=== PATIENT | female | born 1940 | race Caucasian/White ===

== ENCOUNTER 2016-07-18 12:48 | Inpatient (IN) ==
[2016-07-18] MEDS ORDERED: NITROGLYCERIN SL PRN (12:52)
[2016-07-18] MEDS ORDERED: ZOFRAN IV ONE (12:54)
--- NOTE | 2016-07-18 12:56 | EKG Report ---
Test Performed on : 07/18/2016 12:48:39 PM Test Reason : Chest Pain Blood Pressure : / mmHG Vent. Rate : 065 BPM Atrial Rate : 065 BPM P-R Int : 184 ms QRS Dur : 086 ms QT Int : 466 ms P-R-T Axes : 022 099 -26 degrees QTc Int : 484 ms Normal sinus rhythm. Rightward axis Possible Inferior infarct , age undetermined Abnormal ECG No previous ECGs available Unconfirmed Result
[2016-07-18 13:11] LABS: MANUAL DIFF NEEDED? NO
--- NOTE | 2016-07-18 13:13 | PROVIDER DOCUMENTATION ---
HPI-Chest Pain - General Chief Complaint: Chest Pain Stated Complaint: CP Time Seen by Provider: 07/18/16 13:00 Source: patient, family Allergies/Adverse Reactions: Patient Allergies Allergy/AdvReac Type Severity Reaction Status Date / Time No Known Allergies Allergy Verified 07/18/16 13:14 Home Medications: Home Medication List Medication Instructions Recorded Confirmed Last Taken Type Amlodipine Besylate [Amlodipine 5 mg PO DAILY 07/18/16 07/18/16 Unknown History Besylate] Biotin 1,000 mcg PO DAILY 07/18/16 07/18/16 Unknown History Celecoxib 200 mg PO DAILY 07/18/16 07/18/16 Unknown History Fluoxetine [Prozac] 10 mg PO DAILY 07/18/16 07/18/16 Unknown History Losartan [Cozaar] 50 mg PO DAILY 07/18/16 07/18/16 Unknown History Lovastatin [Lovastatin] 10 mg PO DAILY 07/18/16 07/18/16 Unknown History - History of Present Illness-CP Nature of Presenting Problem: 76 yo who had epidural block for back pain this am. Developed chest pressure and nausea following procedure and came by ambulance for further evaluation. no prior hx of heart problems except HTN. Location: reports: substernal, central Chest Pain Radiation: reports: back Quality of Pain: reports: pressure Severity in ED: severe Onset/Duration: 1/2 hour ago Timing: still present Context/Activities at Onset: reports: other (after epidural) Associated Symptoms: reports: nausea Nitro Today/Relief: 0.4 mg x 1 (in EMS with no relief) Aspirin Treatment Today: 325 mg x 1 (by ems) Similar Symptoms Previously?: No Recently Seen Here or By Another Healthcare Provider: Yes Review of Systems - Adult - REVIEW OF SYSTEMS - ADULT Constitutional: reports: no symptoms reported Eyes: reports: no symptoms reported Ears, Nose, Mouth & Throat: reports: no symptoms reported Cardiovascular: reports: see HPI, chest pain Respiratory: reports: no symptoms reported Gastrointestinal: reports: nausea Integumentary: reports: no symptoms reported Neurological: reports: no symptoms reported Psychiatric: reports: no symptoms reported Endocrine: reports: no symptoms reported Past History - Adult - PAST MEDICAL HISTORY-ADULT Review of Records: reports: Nursing Assessment Review, Medications Reviewed Major Childhood Illnesses: reports: history unknown Cardiovascular: reports: HTN Respiratory: reports: denies history Gastrointestinal: reports: denies history Genitourinary: reports: denies history Musculoskeletal: reports: arthritis, chronic pain, neck/back injury Neurological: reports: denies history Psychiatric: reports: denies history Endocrine/Immune: reports: thyroid disorder Physical Exam-General - PHYSICAL EXAM-ADULT Initial Vital Signs Reviewed: Yes - CONSTITUTIONAL General Appearance: alert, no apparent distress - EYES Eyes: PERRL/EOMI - HEAD, EARS, NOSE, MOUTH & THROAT HENMT: normal ENT inspection - NECK Neck: non-tender, supple, normal inspection - RESPIRATORY Respiratory: chest non-tender, lungs clear, normal breath sounds - CARDIOVASCULAR Cardiovascular: regular rate, rhythm, no edema, no gallop, no JVD, no murmur - GASTROINTESTINAL (ABDOMEN) Abdominal Exam: normal bowel sounds, non tender, soft, no organomegaly - LYMPHATIC Lymphatic: no adenopathy - MUSCULOSKELETAL Back Exam: normal inspection Extremity: normal range of motion, non-tender - SKIN Integumentary: normal color, normal turgor, warm/dry - NEUROLOGIC Neurologic: grossly normal, no motor/sensory deficits Progress - PLAN OF CARE/RESULTS Progress/Plan/Lab Results: Vital Signs - 8 hr 07/18/16 12:49 07/18/16 15:33 07/18/16 16:52 Pulse Rate 62 73 Respiratory Rate 13 20 Blood Pressure 138/68 153/72 153/72 O2 Sat by Pulse Oximetry 97 95 07/18/16 17:32 07/18/16 18:40 07/18/16 19:26 Pulse Rate 74 72 65 Respiratory Rate 16 14 16 Blood Pressure 153/72 153/72 153/72 O2 Sat by Pulse Oximetry 96 97 Laboratory Results - last 24 hr 07/18/16 07/18/16 07/18/16 13:00 13:00 13:00 WBC 6.03 RBC 3.62 L Hgb 10.4 L Hct 32.7 L MCV 90.3 MCH 28.7 MCHC 31.8 L RDW Std Deviation 13.0 Plt Count 187 MPV 10.9 H Immature Gran % (Auto) Neut % (Auto) 84.6 H Lymph % (Auto) 12.9 L [place] % (Auto) 1.8 Eos % (Auto) 0.2 Baso % (Auto) 0.5 Immature Gran # (Auto) Neut # (Auto) 5.10 Lymph # (Auto) 0.78 L [place] # (Auto) 0.11 Eos # (Auto) 0.01 Baso # (Auto) 0.03 PT INR PTT (Actin FS) D-Dimer 0.68 H Sodium 139 Potassium 3.0 L Chloride 110 H Carbon Dioxide 17 L Anion Gap 12 BUN 24 H Creatinine 0.9 Estimated GFR/1.73 m2 > 60 BUN/Creatinine Ratio 27 Glucose 117 H Calculated Osmolality 283 Calcium 6.6 L* Magnesium 1.5 Total Bilirubin 0.29 AST 11 ALT 7 L Alkaline Phosphatase 45 Creatine Kinase 24 Troponin T Xcn-M-Tefmlbvketg Pept Total Protein 5.5 L Albumin 2.8 L Globulin 2.7 Albumin/Globulin Ratio 1.0 07/18/16 07/18/16 07/18/16 13:00 13:00 13:00 WBC RBC Hgb Hct MCV MCH MCHC RDW Std Deviation Plt Count MPV Immature Gran % (Auto) Neut % (Auto) Lymph % (Auto) [place] % (Auto) Eos % (Auto) Baso % (Auto) Immature Gran # (Auto) Neut # (Auto) Lymph # (Auto) [place] # (Auto) Eos # (Auto) Baso # (Auto) PT 11.5 INR 1.09 PTT (Actin FS) 23.9 D-Dimer Sodium Potassium Chloride Carbon Dioxide Anion Gap BUN Creatinine Estimated GFR/1.73 m2 BUN/Creatinine Ratio Glucose Calculated Osmolality Calcium Magnesium Total Bilirubin AST ALT Alkaline Phosphatase Creatine Kinase Troponin T < 0.010 Ueu-J-Gxhmzpenyvq Pept 192 Total Protein Albumin Globulin Albumin/Globulin Ratio 07/18/16 07/18/16 07/18/16 15:25 15:25 18:05 WBC RBC Hgb Hct MCV MCH MCHC RDW Std Deviation Plt Count MPV Immature Gran % (Auto) Neut % (Auto) Lymph % (Auto) [place] % (Auto) Eos % (Auto) Baso % (Auto) Immature Gran # (Auto) Neut # (Auto) Lymph # (Auto) [place] # (Auto) Eos # (Auto) Baso # (Auto) PT INR PTT (Actin FS) D-Dimer Sodium 139 Potassium 4.3 D Chloride 104 Carbon Dioxide 19 L Anion Gap 16 BUN 27 H Creatinine 1.2 H Estimated GFR/1.73 m2 44 BUN/Creatinine Ratio 23 Glucose 142 H Calculated Osmolality 285 Calcium 9.2 D Magnesium Total Bilirubin 0.27 AST 18 ALT 11 Alkaline Phosphatase 64 Creatine Kinase 43 Troponin T 0.016 D Ppg-V-Mxpgrffznrp Pept Total Protein 7.4 Albumin 4.0 Globulin 3.4 Albumin/Globulin Ratio 1.2 07/18/16 07/18/16 18:05 18:05 WBC 5.42 RBC 4.44 Hgb 12.9 D Hct 38.9 MCV 87.6 MCH 29.1 MCHC 33.2 RDW Std Deviation 13.1 Plt Count 225 MPV 10.9 H Immature Gran % (Auto) 0.4 Neut % (Auto) 92.2 H Lymph % (Auto) 6.8 L [place] % (Auto) 0.4 L Eos % (Auto) 0.0 Baso % (Auto) 0.2 Immature Gran # (Auto) 0.02 Neut # (Auto) 5.00 Lymph # (Auto) 0.37 L [place] # (Auto) 0.02 L Eos # (Auto) 0.00 Baso # (Auto) 0.01 PT INR PTT (Actin FS) D-Dimer Sodium Potassium Chloride Carbon Dioxide Anion Gap BUN Creatinine Estimated GFR/1.73 m2 BUN/Creatinine Ratio Glucose Calculated Osmolality Calcium Magnesium Total Bilirubin AST ALT Alkaline Phosphatase Creatine Kinase Troponin T 0.039 D Nir-K-Axtkhurxgmm Pept Total Protein Albumin Globulin Albumin/Globulin Ratio Orders Category Date Time Status Cardiac Monitoring DIRECTED Care 07/18/16 12:52 Active Oxygen Therapy- ED Nursing DIRECTED Care 07/18/16 12:52 Active Saline Loc NOW Care 07/18/16 12:52 Active CHEST-PORTABLE [RAD] Stat Exams 07/18/16 12:53 Completed CTA [ANGIOGRAM/PULMONARY ARTERIES] [CT] Stat Exams 07/18/16 14:36 Completed CBC WITH DIFF [HEME] Stat Lab 07/18/16 18:05 Completed CBC WITH ELECTRONIC DIFF [HEME] Stat Lab 07/18/16 13:00 Completed CK PROFILE [SP CHEM] Stat Lab 07/18/16 13:00 Completed CK PROFILE [SP CHEM] Stat Lab 07/18/16 15:25 Completed COMPREHENSIVE METABOLIC PANEL [CHEM] Stat Lab 07/18/16 13:00 Completed COMPREHENSIVE METABOLIC PANEL [CHEM] Stat Lab 07/18/16 18:05 Completed D-DIMER [CHEM] Stat Lab 07/18/16 13:00 Completed FERRITIN Routine Lab 07/19/16 06:00 Ordered FOLATE Routine Lab 07/19/16 06:00 Ordered MAGNESIUM [CHEM] Stat Lab 07/18/16 13:00 Completed PRO B-NATRIURETIC PEPTIDE Stat Lab 07/18/16 13:00 Completed PROTIME WITH INR [COAG] Stat Lab 07/18/16 13:00 Completed PTT [COAG] Stat Lab 07/18/16 13:00 Completed TOTAL IRON [CHEM] Routine Lab 07/19/16 06:00 Ordered TROPONIN T Stat Lab 07/18/16 13:00 Completed TROPONIN T Stat Lab 07/18/16 15:25 Completed TROPONIN T Stat Lab 07/18/16 18:05 Completed UIBC W TOTAL IRON [CHEM] Routine Lab 07/19/16 06:00 Ordered VITAMIN B12 Routine Lab 07/19/16 06:00 Ordered Famotidine [Pepcid] Med 07/18/16 16:04 Discontinued 20 mg IV NOW ONE Lido/Springer Alk/Al&mg Hydrox [G.i. Cocktail] Med 07/18/16 16:05 Discontinued 30 ml PO NOW ONE Morphine Med 07/18/16 14:29 Discontinued 2 mg IV NOW ONE Morphine Med 07/18/16 16:05 Discontinued 2 mg IV NOW ONE Nitroglycerin Med 07/18/16 13:20 Discontinued 1 inch TOP NOW ONE Nitroglycerin Sl [Nitroglycerin] Med 07/18/16 12:52 Active 0.4 mg SL Q5M PRN PRN Ondansetron [Zofran] Med 07/18/16 12:54 Discontinued 4 mg IV NOW ONE Potassium Chloride 20 Meq/Swi Med 07/18/16 14:33 Discontinued 20 meq in 100 ml IV ONCE Sodium Chloride 0.9% Med 07/18/16 16:04 Discontinued 5 - 10 ml INJ NOW ONE EKG [EKG] Stat Ther 07/18/16 12:52 Draft EKG [EKG] Stat Ther 07/18/16 15:00 Ordered Transfer/Admit Order [TRANSFER] Routine Transfer 07/18/16 18:13 Ordered Result Diagrams: 07/18/16 18:05 07/18/16 18:05 - EKG 1 Time of EKG reading by physician:: 13:00 EKG Read and Signed by:: Zeny Parish EKG Interpretation (*Must complete 3 of following elements*): Abnormal [place]: right IN Interval: normal ST Wave: non-specific ST changes (wave inverted inferiorly- unsure duration) Prior EKG Comparison: no prior EKG - XRAY 1 XRAY Study: Chest (no acute changes, mild cardiomegally) - CT/MRI 1 CT Study: Angiogram (chest- no pulmonary embolus, moderate hiatal hernia) - CONSULTS/PCP/HOSPITALIST Notification #1 *Consult/PCP/Hospitalist*: Dr Aguilar ( hospitalist covering [place]) Time Discussed: 16:30 Reason/Comments: r/o RI Consult Disposition: Admit Departure - Departure Time of Disposition Decision: 16:30 DIAGNOSIS: Chest pain Disposition: ADMITTED INPATIENT 09 Certified Medical Emergency: Emergent Condition: Fair Referrals and Follow-Ups: Raleigh Banda MD [Primary Care Provider] -
[2016-07-18 13:14] LABS: BASO% 0.5 % (0.0-0.8); EOS# 0.01 X1000 (0.0-0.7); EOS% 0.2 % (0.0-10.0); HEMATOCRIT 32.7 % (37.0-47.0); HEMOGLOBIN 10.4 g/dL (12.0-16.0); LYMPH# 0.78 X1000 (1.2-3.4); LYMPH% 12.9 % (20.5-51.1); MCH 28.7 PG (27-31); MCHC 31.8 g/dL (33-37); MCV 90.3 FL (81-99); MONO# 0.11 X1000 (0.11-0.59); MONO% 1.8 % (1.7-9.3); MPV 10.9 FL (7.4-10.4); NEUT% 84.6 % (42.2-75.2); PLT 187 X1000 (130-400); RBC 3.62 XMIL (4.2-5.4)
[2016-07-18] MEDS ORDERED: NITROGLYCERIN TOP ONE (13:20)
[2016-07-18 13:29] LABS: INR 1.09; PROTIME 11.5 Seconds (9.2-11.7); PTT 23.9 Seconds (22.0-36.0)
[2016-07-18 14:09] LABS: AGAP 12; ALBUMIN 2.8 g/dL (3.5-5.0); ALKALINE PHOSPHATASE 45 U/L (32-104); BUN 24 mg/dL (8-22); CALCIUM 6.6 mg/dL (8.8-10.2); CHLORIDE 110 mmol/L (98-107); CK PROFILE 24 U/L (24-173); COSMO 283; GOT 11 U/L (10-30); GPT 7 U/L (10-36); MAGNESIUM 1.5 mg/dL (1.5-2.7); SODIUM 139 mmol/L (136-145); TCO2 17 mmol/L (25-35); TOTAL BILIRUBIN 0.29 mg/dL (0.20-1.00); TOTAL PROTEIN 5.5 g/dL (6.3-8.3)
--- NOTE | 2016-07-18 14:21 | Diag Imaging Result Document ---
PROCEDURE NAME: CHEST-PORTABLE - 07/18/2016 PORTABLE UPRIGHT CHEST: FINDINGS: The lungs are well expanded. Heart is mildly prominent. The vessels are not distended. No pneumonia. No pleural effusions identified. There is a small hiatal hernia. No pneumonia. IMPRESSION: Mild cardiomegaly.
[2016-07-18] MEDS ORDERED: MORPHINE IV ONE ×2 (14:29→16:05)
[2016-07-18] MEDS ORDERED: POTASSIUM CHLORIDE 20 MEQ/SWI 20 MEQ/100 ML IVPB IV ONE (14:33)
[2016-07-18] MEDS ORDERED: PEPCID IV ONE (16:04)
[2016-07-18] MEDS ORDERED: SODIUM CHLORIDE 0.9% INJ ONE (16:04)
[2016-07-18] MEDS ORDERED: G.I. COCKTAIL PO ONE (16:05)
--- NOTE | 2016-07-18 16:11 | Diag Imaging Result Document ---
PROCEDURE NAME: ANGIOGRAM/PULMONARY ARTERIES - 07/18/2016 CT ANGIOGRAM PULMONARY ARTERIES WITH CONTRAST: FINDINGS: Exam performed with intravenous contrast. A dose reduction protocol was used. Axial and coronal images are obtained. No comparison exam. There are mild artifacts from motion, primarily at the lower lobes. There are no filling defects identified in the pulmonary arteries. There are 2 calcified granulomas from old granulomatous disease at the right middle lobe. There are 2 noncalcified nodular opacities at the right apex, 1 of which measures 5-6 mm and the other which measures 4-5 mm. There is mild dependent atelectasis. There is no consolidation, pleural effusion, or pneumothorax identified. There is a small to medium sized hiatal hernia noted. IMPRESSION: 1. No evidence of pulmonary embolism. 2. No evidence of pneumonia. 3. Two nonspecific subcentimeter noncalcified pulmonary nodular opacities at right apex. Followup CT thorax in 2-3 months is recommended. 4. Vtkrd-xg-ujzuve sized hiatal hernia. [facility]
[2016-07-18] MEDS ORDERED: APRESOLINE IV ONE (18:08)
[2016-07-18 18:43] LABS: BASO% 0.2 % (0.0-0.8); HEMATOCRIT 38.9 % (37.0-47.0); HEMOGLOBIN 12.9 g/dL (12.0-16.0); IMM GRAN# 0.02 X1000 (0.0-0.04); IMM GRAN% 0.4 % (0.0-0.5); LYMPH# 0.37 X1000 (1.2-3.4); LYMPH% 6.8 % (20.5-51.1); MANUAL DIFF NEEDED? NO; MCH 29.1 PG (27-31); MCHC 33.2 g/dL (33-37); MCV 87.6 FL (81-99); MONO# 0.02 X1000 (0.11-0.59); MONO% 0.4 % (1.7-9.3); MPV 10.9 FL (7.4-10.4); NEUT% 92.2 % (42.2-75.2); PLT 225 X1000 (130-400); RBC 4.44 XMIL (4.2-5.4)
[2016-07-18 18:58] LABS: CALCIUM 9.2 mg/dL (8.8-10.2); POTASSIUM 4.3 mmol/L (3.5-5.1); TOTAL BILIRUBIN 0.27 mg/dL (0.20-1.00); TOTAL PROTEIN 7.4 g/dL (6.3-8.3)
[2016-07-18] MEDS ORDERED: NS 1,000 ML IV SCH (21:17)
[2016-07-19 05:49] LABS: HEMOGLOBIN 11.9 g/dL (12.0-16.0); MCH 28.9 PG (27-31); MCHC 32.2 g/dL (33-37); MCV 89.8 FL (81-99); MPV 11.3 FL (7.4-10.4); RBC 4.12 XMIL (4.2-5.4)
--- NOTE | 2016-07-19 06:02 | EKG Report ---
Test Performed on : 07/18/2016 4:32:06 PM Test Reason : chest pain Blood Pressure : / mmHG Vent. Rate : 077 BPM Atrial Rate : 077 BPM P-R Int : 202 ms QRS Dur : 088 ms QT Int : 426 ms P-R-T Axes : 063 -48 080 degrees QTc Int : 482 ms Sinus rhythm. with marked sinus arrhythmia. Left anterior fascicular block Abnormal ECG When compared with ECG of 18-JUL-2016 12:48, (Unconfirmed) Left anterior fascicular block is now present Borderline criteria for Inferior infarct are no longer present Non-specific change in ST segment in Inferior leads T wave inversion no longer evident in Inferior leads T wave inversion now evident in Lateral leads Unconfirmed Result
--- NOTE | 2016-07-19 06:04 | HISTORY AND PHYSICAL ---
CHIEF COMPLAINT: Chest pain. HISTORY OF PRESENT ILLNESS: This is a 76-year-old, female with a past medical history of hypertension, depression, and neuropathy. Came to the emergency department with the chief complaint of chest pain that started this morning after getting an epidural anesthesia. The patient states that she received the epidural and 45 minutes afterwards, she started having suprasternal chest pain, pressure-like, radiated to the left shoulder and left upper back, associated with nausea and sweating. As per the patient, she has been off aspirin for 7 days because of this procedure. She had the procedure in the morning. She did not receive any aspirin in the emergency department because of her recent epidural. This patient stated that the pain was about 8/10 but at this moment, the pain is 5 to 6/10. The pain is getting better because of the pain medication that she received here in the emergency department. This patient will be admitted to the CIC unit. Cardiology department will be consulted. We will get cardiac enzymes and regular lab work. Also, we will get an echocardiogram for this patient. REVIEW OF SYSTEMS: All the 14 points of review of systems were reviewed. All negative except as per HPI. PAST MEDICAL HISTORY: Hypertension, depression, neuropathy. PAST SURGICAL HISTORY: Hysterectomy a long time ago. FAMILY HISTORY: A brother with heart attack at the age of 55. Sister with coronary artery disease and CABG. Multiple family members with heart attacks. 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 ALLERGIES: No known drug allergies. BLOOD TRANSFUSIONS: No blood transfusions before. MEDICATIONS: Gabapentin 600 mg t.i.d., biotin 1000 mcg daily, losartan 50 mg daily, amlodipine 5 mg daily, fluoxetine 10 mg daily, celecoxib 200 mg daily, lovastatin 10 mg daily, and aspirin 81 mg daily. PHYSICAL EXAMINATION: VITAL SIGNS: Pulse 74, respiratory rate 16, blood pressure 153/72, oxygen saturation 95% on room air. HEENT: Head normocephalic. No trauma. PERRLA. NECK: Supple. No JVD. No masses. Central trachea. CHEST: Clear to auscultation. No wheezing. No rales. CARDIOVASCULAR: RRR. No murmurs. ABDOMEN: Soft, nontender, nondistended. No hepatosplenomegaly. EXTREMITIES: No edema. No clubbing. No cyanosis. NEUROLOGICAL: The patient is alert. She is oriented x3. No focal neurological deficits at this moment, just mild chronic pain, discomfort. LABORATORY: WBCs 6, hemoglobin 10.4, hematocrit 32.7, platelets 187,000. D-dimer 0.68. Sodium 139, potassium 3, chloride 110, bicarbonate 17, BUN 24, creatinine 0.9, glucose 117, calcium 6.6. Troponins less than 0.01 and 0.016. Albumin 2.8. ASSESSMENT AND PLAN: 1. Chest pain. This patient has chronic hypertension. As per the patient, she has been hypertensive for a very long time and her blood pressure runs around 150s. This patient is still having chest pain of 5 to 6/10 that is better compared with this morning. The pain is substernal, pressure like, radiated to the shoulder and upper left back. I will ask for serial troponins, cardiology department, echocardiogram to evaluate the heart function. I will monitor this patient in the CIC unit with telemetry. 2. Hypertension. I will continue her home medications. We will monitor. 3. Normocytic anemia. I do not have the records here in the hospital. This is her 1st hospitalization here. I will ask for the anemia workup. 4. Elevated D-dimer. This patient already had a pulmonary angiogram that did not show any evidence of pulmonary embolism. 5. Hypokalemia. This has been replaced. 6. Hypocalcemia. I will repeat the lab work. She does not have any symptoms of hypocalcemia. cc: Willian Lovell MD
[2016-07-19 06:17] LABS: AGAP 13; BUN 25 mg/dL (8-22); CALCIUM 9.2 mg/dL (8.8-10.2); CHLORIDE 105 mmol/L (98-107); COSMO 283; HDL 48 mg/dL (45-65); IRON SATURATION 21 %; LDL 102 mg/dL; POTASSIUM 4.5 mmol/L (3.5-5.1); SODIUM 139 mmol/L (136-145); TCO2 21 mmol/L (25-35); TIBC 297 ug/dL; TOTAL IRON 62 ug/dL (49-151); TRIGLYCERIDES 73 mg/dL (35-135); UNBOUND IRON 235 ug/dL (112-346); VLDL 15 mg/dL
[2016-07-19 06:36] LABS: FERRITIN 113 ng/mL (13-150)
[2016-07-19] MEDS ORDERED: COZAAR PO SCH (09:00)
[2016-07-19] MEDS ORDERED: HEPARIN SUBQ SCH (09:00)
--- NOTE | 2016-07-19 11:32 | CONSULTATION ---
DATE OF CONSULTATION: 07/19/2016 REASON FOR CONSULTATION: Cardiology was consulted for chest pain and abnormal cardiac enzymes. HISTORY OF PRESENT ILLNESS: A 76-year-old lady with history of hypertension, depression, neuropathy, came to the emergency room with chief complaint of chest discomfort. She underwent an epidural injection for back pain and subsequently started having suprasternal chest discomfort which she says is severe pressure-like, heavy sensation radiating to her left shoulder and left upper back associated with some nausea and diaphoresis and came to the emergency room. Her electrocardiogram revealed normal sinus rhythm. There were no acute ST-T changes to suggest ischemia. Two sets of cardiac enzymes were negative. Subsequent troponin was abnormal at 0.13. On my re-examination patient was pain-free. Patient when she had the chest discomfort described at 8/10 and subsequently when she came to the emergency room it was 5-6/10 and is currently pain- free. REVIEW OF SYSTEMS: A 14-point review of system was done. GI System: There is no history of nausea, vomiting, diarrhea. There is no history of melena. Central Nervous System: No focal weakness to suggest a CVA. System: There is no dysuria or hematuria. PAST MEDICAL HISTORY: 1. Hypertension. 2. Depression. 3. Neuropathy. HOME MEDICATIONS: 1. Aspirin 81 mg a day. 2. Amlodipine 5. 3. Losartan 50. 4. She also takes lovastatin 10. SOCIAL HISTORY: She does not smoke. Does not drink. ALLERGIES: No known drug allergies. OTHER MEDICATIONS: 1. Gabapentin 600 mg p.o. t.i.d. 2. Biotin. PHYSICAL EXAMINATION: Vital Signs: Blood pressure was 150/70. Cardiovascular System: Normal jugular venous pressure. There no thyromegaly. No carotid bruit. First and second heart sounds heard. There is no S3, S4 or gallop. Respiratory System: Normal air entry. There are no crepitations or rhonchi. Abdomen: Soft, nontender. There was no guarding or rigidity. Bowel sounds were heard. Central nervous system: Alert and was moving all 4 extremities. Extremities: Examination of extremities revealed no pedal edema. HEENT: Atraumatic, normocephalic. Pupils were equal and reacting to light. ASSESSMENT AND PLAN: 1. Ms. Gisela Caldwell is a 76-year-old, lady with history of hypertension, depression, neuropathy, who underwent epidural for back pain. Subsequently 45 minutes later she had significant retrosternal chest discomfort with radiation to the left arm. She is currently pain-free. She had severe chest discomfort as described above. The patient has abnormal troponin and left ventricular ejection fraction by echocardiogram revealed a focal apical hypokinesis. Patient has non-Q-wave myocardial infarction. Given this, I have recommended that she undergo left heart catheterization. Risks, benefits, alternatives were explained. Patient will be set up for left heart catheterization. In addition, as far as medications are concerned, we will give her aspirin and beta-blockers 25 mg twice daily. We will hold amlodipine, continue with the losartan. 2. Continue with her lovastatin for her cholesterol. We will check a fasting lipid profile as well. 3. We will give her intravenous fluids. A baseline creatinine was 0.9 and subsequently 1.2, and we will hydrate her as well. 4. Hemoglobin 10.4, hematocrit 32, platelet count of 0.7. She had a pulmonary arteriogram and there was no evidence of pulmonary embolism. The creatinine was 1.2, which would have gone up probably secondary to the IVP dye. She is not known to be allergic to the IVP dye. We will hydrate her as well. Thank you for the consult. We will follow hospital course. cc: Thomas Gomez MD
[2016-07-19] MEDS: ASPIRIN PO SCH (11:53)
[2016-07-19] MEDS: BIOTIN 1000 MCG PO SCH (11:53)
[2016-07-19] MEDS: NORVASC PO SCH (11:57)
[2016-07-19] MEDS: LOPRESSOR PO SCH ×2 (11:57→21:41)
[2016-07-19] MEDS: 1/2 NS 1,000 ML IV SCH (11:57)
[2016-07-19 12:02] LABS: CK INDEX 10.4 (0.0-2.5); CK-MB 18.66 ng/mL (0.0-5.0)
[2016-07-19 13:44] LABS: URINE MICRO REVIEW NEEDED? NO; URINE SOURCE CLEAN CATCH
[2016-07-19 13:55] LABS: BILIRUBIN URINE NEGATIVE (NEGATIVE); BLOOD URINE NEGATIVE (NEGATIVE); COLOR YELLOW; GLUCOSE URINE NEGATIVE (NEGATIVE); LEUKOCYTES URINE SMALL (NEGATIVE); NITRITE URINE NEGATIVE (NEGATIVE); PH URINE 5.5; PROTEIN URINE NEGATIVE (NEGATIVE); SP GRAVITY URINE 1.015; TURBIDITY URINE CLEAR (CLEAR); UROBILINOGEN URINE NORMAL (NORMAL)
[2016-07-19 13:57] LABS: UR EPITHELIAL CELLS <10 /HPF (<10); URINE BACTERIA NEGATIVE /HPF; URINE CULTURE NEEDED? YES; URINE RBC <10 /HPF (<10); URINE WBC <10 /HPF (<10)
--- NOTE | 2016-07-19 14:24 | PROGRESS NOTE ---
DATE: 07/19/2016 SUBJECTIVE: This patient states that she is feeling better. She is pain free right now. She denies nausea, vomiting, diarrhea or constipation. OBJECTIVE: Vital Signs: Temperature 98.7, pulse 71, respiratory rate 20, blood pressure 152/74, oxygen saturation 100% on room air. HEENT: Head normocephalic. No trauma. PERRLA. Neck: Supple. No JVD. No masses. Central trachea. Chest: Clear to auscultation. No wheezing. No rales. Cardiovascular: RRR. No murmurs. Abdomen: Soft, nontender, nondistended. No hepatosplenomegaly. Extremities: No edema. No clubbing. No cyanosis. Neurological: The patient is alert and oriented x3. No focal neurological deficits. LABORATORY: WBC 9.9, hemoglobin 11.9, hematocrit 37, platelets 225. Sodium 139, potassium 4.5, chloride 105, bicarbonate 21. BUN 25, creatinine 1.2. Glucose 118, calcium 9.2. Troponin 0.4. ASSESSMENT AND PLAN: 1. Non-ST elevation myocardial infarction. Cardiology department is on board. They are planning to do a left heart catheterization tomorrow. At this moment, this patient is stable. I will continue to monitor this patient closely. We will continue following the recommendation of Cardiology department. 2. Hypertension. Continue with her home medications. Cardiology department has been adjusting her medications. 3. Normocytic anemia. Vitamin B12, folate is normal and ferritin level is 113, we will continue to monitor. No changes for now. 4. Elevated D-dimer, aware. 5. Hypokalemia. This has resolved. 6. Hypocalcemia, resolved. cc: Willian Lovell MD
--- NOTE | 2016-07-19 14:41 | ECHO REPORT ---
ORDER DATE: 07/19/2016 MEASUREMENTS: Left ventricular end diastolic diameter 3.6, end systolic diameter 2.5, posterior wall thickness 1.7, septal thickness 1.3, left atrium 5.1, aortic root 2.8 SUMMARY: 1. Adequate quality study. 2. Aortic valve is trileaflet and opens normally on 2-dimensional images with peak gradient of 6.4 mmHg. Mild mitral annular calcification is demonstrated. There is mild mitral regurgitation. Tricuspid and pulmonic valves are without structural abnormality, with mild tricuspid regurgitation and mild pulmonic regurgitation. Estimated systolic PA pressure by Doppler is 30-35 mmHg. Aortic root is normal size. 3. Normal left ventricular chamber size with mild to moderate concentric left hypertrophy is demonstrated. Estimated left ventricular ejection fraction appears to be at least 60%. The more basal part of the left ventricle is dynamic, while there is a small region of relative apical hypokinesis. Doppler of mitral inflow appears to demonstrate pseudonormalization, suggesting grade 2 left ventricular diastolic dysfunction. Left atrium is moderately enlarged. Right atrium and right ventricle are normal size with preserved right ventricular systolic function. 4. Small posterior pericardial effusion demonstrated, without echocardiographic markers of hemodynamic impact. 5. Appearance of inferior vena cava suggests normal central venous pressure. CONCLUSIONS: 1. Mild mitral regurgitation. 2. Mild tricuspid regurgitation. 3. Mild to moderate concentric left hypertrophy with estimated left ventricular ejection fraction at least 60%. 4. Grade 2 left ventricular diastolic dysfunction suggested. 5. Moderate left atrial enlargement. 6. Small posterior pericardial effusion. cc: MD Willian Padilla MD
[2016-07-19] MEDS ORDERED: LOVENOX SUBQ ONE (15:44)
[2016-07-19] MEDS: MEVACOR PO SCH (21:41)
[2016-07-19] MEDS: PROZAC PO SCH (22:08)
[2016-07-20] MEDS: 1/2 NS 1,000 ML IV SCH (02:28)
[2016-07-20 05:11] LABS: MANUAL DIFF NEEDED? NO
[2016-07-20 05:20] LABS: BASO% 0.3 % (0.0-0.8); EOS# 0.04 X1000 (0.0-0.7); EOS% 0.4 % (0.0-10.0); HEMATOCRIT 34.9 % (37.0-47.0); HEMOGLOBIN 11.4 g/dL (12.0-16.0); LYMPH# 3.12 X1000 (1.2-3.4); MCH 29.5 PG (27-31); MCHC 32.7 g/dL (33-37); MCV 90.4 FL (81-99); MONO% 6.2 % (1.7-9.3); MPV 11.4 FL (7.4-10.4); NEUT% 61.1 % (42.2-75.2); PLT 245 X1000 (130-400); RBC 3.86 XMIL (4.2-5.4)
[2016-07-20 05:24] LABS: INR 1.02; PROTIME 10.7 Seconds (9.2-11.7)
[2016-07-20 05:36] LABS: AGAP 12; BUN 24 mg/dL (8-22); CALCIUM 8.9 mg/dL (8.8-10.2); CHLORIDE 104 mmol/L (98-107); COSMO 283; HDL 42 mg/dL (45-65); LDL 94 mg/dL; POTASSIUM 3.7 mmol/L (3.5-5.1); SODIUM 140 mmol/L (136-145); TCO2 24 mmol/L (25-35); TRIGLYCERIDES 135 mg/dL (35-135); VLDL 27 mg/dL
--- NOTE | 2016-07-20 07:07 | EKG Report ---
Test Performed on : 07/20/2016 06:45:29 AM Test Reason : [facility] Blood Pressure : / mmHG Vent. Rate : 054 BPM Atrial Rate : 054 BPM P-R Int : 200 ms QRS Dur : 088 ms QT Int : 450 ms P-R-T Axes : 065 -54 007 degrees QTc Int : 426 ms Sinus bradycardia. Left anterior fascicular block Abnormal ECG When compared with ECG of 18-JUL-2016 16:32, (Unconfirmed) T wave inversion now evident in Inferior leads T wave inversion no longer evident in Lateral leads QT has shortened Confirmed by Chelle FOUNTAIN, Riley Tyson ([id number]) on 07/21/2016 2:22:35 PM
[2016-07-20] MEDS: LOPRESSOR PO SCH ×2 (08:24→20:52)
[2016-07-20] MEDS: NORVASC PO SCH (08:24)
[2016-07-20] MEDS: ASPIRIN PO SCH (08:24)
[2016-07-20] MEDS ORDERED: NITROGLYCERIN ONE (08:25)
[2016-07-20] MEDS ORDERED: HEPARIN 1000 UNITS/NS 2,000 UNIT/1,000 ML IV.SOLN ONE (08:26)
[2016-07-20] MEDS ORDERED: VERSED ONE (09:09)
[2016-07-20] MEDS ORDERED: DILAUDID ONE (09:09)
[2016-07-20] MEDS: BIOTIN 1000 MCG PO SCH (10:15)
--- NOTE | 2016-07-20 10:20 | CARDIAC CATH REPORT ---
PROCEDURE NAME: - INDICATION FOR PROCEDURE: Non-ST elevation ND. PROCEDURE PERFORMED: 1. Left heart catheterization. 2. Selective coronary angiography. 3. Left ventriculogram. PROCEDURE IN DETAIL: Ms. Caldwell is a 76-year-old, white female. She was brought to catheterization laboratory in the fasting state. Informed consent was obtained. Prepped in usual fashion. She was anesthetized over the right radial artery after Marek's test was proved adequate. A 5-Kiswahili sheath was placed via true Seldinger technique. Radial cocktail was administered. Catheters were introduced and hemodynamic measurements made in the ascending thoracic aorta. Coronary angiography was performed in multiple views using JL3.5 and JR4 diagnostic catheters. Left heart catheterization: A left ventriculogram was performed using the JR4. At the conclusion of the procedure, all sheaths and catheters were removed. TR band was left inflated at 9 mL of air. Good capillary refill, good hemostasis. The patient tolerated the procedure well without any complications. 70 mL of Visipaque. 10 mL of blood loss. No apparent complications. FINDINGS: 1. The left main appears relatively normal. 2. Left anterior descending originates from the left main. Mild luminal irregularities are noted to the proximal vessel with 20-30% ostial disease. There is a mid vessel 40-50% disease. It appears somewhat hazy, but does not appear to have any plaque burden. The distal vessel in the extreme distal portion is very small, probably 1 mm or less. There does appear to be an occlusion in that area. It is likely the source of the non-ST elevation ND, as well as the wall motion abnormality, as it does wrap around the apex and provide blood flow to the extreme distal inferior wall. A cascade of diagonals versus a ramus with an ostial 30-40% lesion. 3. Circumflex originates from the left main. Essentially, there are mild luminal irregularities noted throughout the course of the circumflex and OM's. 4. Right coronary originates from the right coronary cusp. Mild luminal irregularities are noted throughout this vessel. It is a right dominant system and relatively large. 5. Left ventriculogram demonstrated an EF of 55-60%. There is akinesis noted in the extreme apex as well as the distal inferior wall. 6. Aortic blood pressure is 124/50. 7. Left ventricle pressure is 122/0 with an LVEDP of 11. ASSESSMENT: Ms. Caldwell is a 76-year-old, white female who presented with a non-ST elevation myocardial infarction. PLAN: She appears to have a flow-limiting lesion in the extreme distal LAD that corresponds to the wall motion abnormality. This could have been the original site of the occlusion or she could have a potential plaque rupture from the mid LAD that travelled distally. Either way, we would treat this patient medically with ARB and beta-blockers that she is already on. I would initiate Plavix as well considering that she had a non-ST elevation ND. We will make that adjustment in her medications. cc: Chase James MD
--- NOTE | 2016-07-20 11:19 | EKG Report ---
Test Performed on : 07/20/2016 10:50:25 AM Test Reason : Heart Cath Blood Pressure : / mmHG Vent. Rate : 050 BPM Atrial Rate : 050 BPM P-R Int : 206 ms QRS Dur : 100 ms QT Int : 492 ms P-R-T Axes : 065 -56 006 degrees QTc Int : 448 ms Sinus bradycardia. with premature atrial complexes. Left anterior fascicular block Abnormal ECG When compared with ECG of 20-JUL-2016 06:45, (Unconfirmed) premature atrial complexes. are now present Confirmed by Chelle FOUNTAIN, Riley Tyson ([id number]) on 07/21/2016 2:24:07 PM
--- NOTE | 2016-07-20 12:49 | PROGRESS NOTE ---
DATE: 07/20/2016 SUBJECTIVE: This patient is resting comfortably on the bed. No acute events overnight. OBJECTIVE: Vital Signs: Temperature 98.2 degrees, pulse 53, respiratory rate 16, blood pressure 131/58, oxygen saturation 100% on room air. HEENT: Head normocephalic. No trauma. PERRLA. Neck: Supple. No JVD. No masses. Central trachea. Chest: Clear to auscultation. No wheezing. No rales. Cardiovascular: RRR. No murmurs. Abdomen: Soft, nontender, nondistended. No hepatosplenomegaly. Extremities: No edema. No clubbing. No cyanosis. Neurological: No changes. LABORATORY: WBC 9.7, hemoglobin 11.4, hematocrit 34.9, platelet 245,000. Sodium 140, potassium 3.7, chloride 104, bicarbonate 24, BUN 24, creatinine 1.3, glucose 84, calcium 8.9, magnesium 2.2. ASSESSMENT AND PLAN: 1. Non-ST elevation myocardial infarction. Cardiology Department just did a left cardiac catheterization and they found a distal left anterior descending disease. They are planning to continue medical management. We will keep this patient for 1 more day and probably tomorrow she can be discharged if she is stable. 2. Hypertension. Continue with home medications. 3. Normocytic anemia. We will continue to monitor. No changes for now. 4. Elevated D-dimer. Aware. 5. Hypokalemia. Resolved. 6. Hypocalcemia. Resolved. CRITICAL CARE TIME: 30 minutes. cc: Willian Lovell MD
[2016-07-20] MEDS: MEVACOR PO SCH (20:52)
[2016-07-20] MEDS: PROZAC PO SCH (20:53)
[2016-07-21] MEDS: TYLENOL PO PRN ×2 (02:36→11:28)
[2016-07-21] MEDS: 1/2 NS 1,000 ML IV SCH ×2 (03:57→07:29)
[2016-07-21 05:33] LABS: MANUAL DIFF NEEDED? NO
[2016-07-21 05:57] LABS: BASO% 0.4 % (0.0-0.8); EOS# 0.05 X1000 (0.0-0.7); EOS% 0.7 % (0.0-10.0); HEMATOCRIT 40.9 % (37.0-47.0); HEMOGLOBIN 13.6 g/dL (12.0-16.0); IMM GRAN# 0.02 X1000 (0.0-0.04); IMM GRAN% 0.3 % (0.0-0.5); LYMPH% 19.5 % (20.5-51.1); MCH 29.1 PG (27-31); MCHC 33.3 g/dL (33-37); MCV 87.4 FL (81-99); MONO# 0.62 X1000 (0.11-0.59); MONO% 8.1 % (1.7-9.3); MPV 11.5 FL (7.4-10.4); PLT 240 X1000 (130-400); RBC 4.68 XMIL (4.2-5.4)
[2016-07-21 06:03] LABS: CALCIUM 9.1 mg/dL (8.8-10.2)
[2016-07-21] MEDS: BIOTIN 1000 MCG PO SCH (08:22)
[2016-07-21] MEDS: NORVASC PO SCH (08:22)
[2016-07-21] MEDS: ASPIRIN PO SCH (08:22)
[2016-07-21] MEDS: LOPRESSOR PO SCH (08:23)
[2016-07-21] MEDS ORDERED: MIRALAX PO SCH (09:00)
[2016-07-21] MEDS ORDERED: PLAVIX PO SCH (09:00)
[2016-07-21 12:08] VITALS: BP 134/78
--- NOTE | 2016-07-21 22:12 | DISCHARGE SUMMARY ---
ADMISSION DATE: 07/18/2016 DISCHARGE DATE: 07/21/2016 DISCHARGE DIAGNOSES: 1. Coronary artery disease. 2. Hypertension. 3. Diastolic heart failure. 4. Depression. 5. Arthritis. DISCHARGE MEDICATIONS: 1. Losartan 10 mg p.o. daily. 2. Cozaar 50 mg p.o. daily. 3. Celebrex 200 mg p.o. daily. 4. Biotin 1000 mg p.o. daily. 5. Aspirin 81 mg p.o. daily. 6. Norvasc 5 mg daily. 7. Prozac 10 mg p.o. daily. 8. Lopressor 50 mg p.o. b.i.d. 9. Plavix 75 mg p.o. daily. CONSULTATION: Cardiology consulted for chest pain. PROCEDURE: Cardiac catheterization performed by Dr. Chase James showed mild to moderate or coronary artery disease and an EF of 55-60% on the ventriculogram. LABORATORY DATA: White count 7.68, hemoglobin 13.6, hematocrit of 40.9, platelets of 240,000. Chemistry. Sodium 139, potassium 4.0, chloride 100, bicarb 25, BUN 19, creatinine 1.0, glucose 91. HOSPITAL COURSE: The patient is a 76-year-old white female with a history of sciatica and disk herniation. She went to the local office to have the epidural. After epidural she is still having chest pain. Presented to the emergency room where she was found to have elevated troponin without ST changes. The patient was admitted to our service with cardiology consult. Cardiology took her to the cardiac catheterization lab and did not see any lesions in stent and they recommend maximum medical management. Her EF is normal but she has evidence of diastolic heart failure. Dr. James recommended maximum medical management. The patient was started on Plavix and Lopressor 50 twice a day. She is only taking losartan and Lasix at home. The patient has remained pain free since admission. 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 PHYSICAL EXAM: Vital signs: At discharge her vital signs blood pressure 134/78, pulse of 77, respiration 18, temperature 98.0 degrees, saturations of 98% room air. General appearance: White female no acute distress. HEENT: Anicteric. Clear conjunctivae. Neck: Supple. No JVD. No bruit. Cardiovascular: S1, S2. Normal rate and rhythm. No murmur, rubs, or gallops. Pulmonary: Clear to auscultation bilaterally. GI: Soft, nontender, nondistended. Normoactive bowel sounds. Musculoskeletal: No clubbing, cyanosis, or edema. PLAN: We will discharge the patient home. CONDITION: Stable and improving. ACTIVITY: As tolerated. DIET: Cardiac prudent diet. FOLLOWUP: The patient is to follow Dr. Banda in about 5-7 days and follow up Dr. Gomez in about 2-4 weeks. TIME DISCHARGING THIS PATIENT: 35 minutes.
== END 2016-07-21 15:40 | disposition home or self-care (01) ==
LOC: ED 12:48 → SUATTDRO 20:11 → EDIPHOLD 20:11 → 3S 07-19 15:14
PROVIDERS: ATTEND Internal Medicine

== ENCOUNTER 2018-09-02 18:42 | Observation (INO) ==
--- NOTE | 2018-09-02 18:56 | PROVIDER DOCUMENTATION ---
HPI-Neurological Disorder - General Chief Complaint: Stroke-Like Symptoms Stated Complaint: STROKE LIKE SX Time Seen by Provider: 09/02/18 18:53 Allergies/Adverse Reactions: Patient Allergies Allergy/AdvReac Type Severity Reaction Status Date / Time No Known Allergies Allergy Verified 03/19/17 22:55 Home Medications: Home Medication List Medication Instructions Recorded Confirmed Last Taken Type Biotin 1,000 mcg PO DAILY 07/18/16 09/03/18 07/17/16 09:00 History Fluoxetine [Prozac] 10 mg PO DAILY 07/18/16 09/03/18 07/17/16 09:00 History Clopidogrel [Plavix] 75 mg PO DAILY #30 tablet 07/21/16 09/03/18 Unknown Rx Metoprolol [Lopressor] 50 mg PO BID #60 tablet 07/21/16 09/03/18 Unknown Rx Apixaban [Eliquis] 1 tab PO DAILY 09/03/18 09/03/18 Unknown History Rosuvastatin Calcium 20 mg PO DAILY 09/03/18 09/03/18 Unknown History - History of Present Illness-Neuro Nature of Presenting Problem: Patient is a 78 year old white female with history of CVA (June 2016), CAD(S/P NE May 2016), and HTN who presents with right facial droop and slurred speech since this 8am this today.. Followed by Dr. Banda. Review of Systems - Adult - REVIEW OF SYSTEMS - ADULT Constitutional: denies: chills, fever Eyes: denies: blurred vision Ears, Nose, Mouth & Throat: denies: throat pain Cardiovascular: denies: chest pain Respiratory: denies: shortness of breath Gastrointestinal: denies: abdominal pain, nausea, vomiting Genitourinary: denies: dysuria Musculoskeletal: reports: see HPI. denies: back pain, neck pain Integumentary: denies: rash Neurological: reports: see HPI. denies: dizziness/vertigo Psychiatric: reports: no symptoms reported Endocrine: reports: no symptoms reported Hematologic/Lymphatic: reports: no symptoms reported Allergic/Immunologic: reports: no symptoms reported All Other Systems: Reviewed and Negative Past History - Adult - PAST MEDICAL HISTORY-ADULT Review of Records: reports: Old Records Reviewed, Nursing Assessment Review, Medications Reviewed, Social history reviewed & non-contributory. Major Childhood Illnesses: reports: history unknown Cardiovascular: reports: HTN, NE Respiratory: reports: denies history Gastrointestinal: reports: denies history Genitourinary: reports: denies history Musculoskeletal: reports: arthritis, chronic pain, neck/back injury Neurological: reports: CVA Psychiatric: reports: denies history Endocrine/Immune: reports: thyroid disorder - PRIOR SURGERIES/PROCEDURES Surgical/Procedure History: reports: hysterectomy, other (cataracts, angiogram) - IMMUNIZATION STATUS Childhood Immunizations: See Nurse Assessment Flu Vaccine: See Nurse Assessment - SOCIAL HISTORY Smoking: denies Substance Use: denies Alcohol Use Frequency: never Living Situation: family (here with son) Physical Exam- Neurological - Physical Exam-Neuro General Appearance: alert, no apparent distress, other (ambulatory, GCS=15) Eye Exam: bilateral eye: normal inspection, PERRL HENMT: normocephalic/atraumatic, normal ENT inspection Head Injury: no evidence of injury Neck: non-tender, full range of motion, supple Respiratory: lungs clear Cardiovascular: regular rate, rhythm Abdominal Exam: non tender, soft Lymphatic: no adenopathy Peripheral Pulses: radial (R): 2+, radial (L): 2+ Extremity: normal range of motion, 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05 PT INR PTT (Actin FS) D-Dimer, Quantitative Sodium Potassium Chloride Carbon Dioxide Anion Gap BUN Creatinine Estimated GFR/1.73 m2 BUN/Creatinine Ratio Glucose Calculated Osmolality Calcium Magnesium Total Bilirubin AST ALT Alkaline Phosphatase Creatine Kinase 90 Troponin T < 0.010 Eqe-W-Shnlccqezan Pept Total Protein Albumin Globulin Albumin/Globulin Ratio 09/02/18 09/02/18 09/02/18 18:56 18:56 18:56 WBC RBC Hgb Hct MCV MCH MCHC RDW Std Deviation Plt Count MPV Immature Gran % (Auto) Neut % (Auto) Lymph % (Auto) Gates % (Auto) Eos % (Auto) Baso % (Auto) Immature Gran # (Auto) Neut # (Auto) Lymph # (Auto) Gates # (Auto) Eos # (Auto) Baso # (Auto) PT INR PTT (Actin FS) D-Dimer, Quantitative 0.48 Sodium 142 Potassium 4.3 Chloride 106 Carbon Dioxide 24 L Anion Gap 12 BUN 34 H Creatinine 1.9 H Estimated GFR/1.73 m2 26 BUN/Creatinine Ratio 18 Glucose 99 Calculated Osmolality 291 Calcium 9.4 Magnesium 2.3 Total Bilirubin 0.30 AST 22 ALT 10 Alkaline Phosphatase 49 Creatine Kinase Troponin T Bsi-L-Ddwmudyuwel Pept 5119 H Total Protein 7.0 Albumin 4.2 Globulin 3.0 Albumin/Globulin Ratio 2.0 09/02/18 18:56 WBC RBC Hgb Hct MCV MCH MCHC RDW Std Deviation Plt Count MPV Immature Gran % (Auto) Neut % (Auto) Lymph % (Auto) Gates % (Auto) Eos % (Auto) Baso % (Auto) Immature Gran # (Auto) Neut # (Auto) Lymph # (Auto) Gates # (Auto) Eos # (Auto) Baso # (Auto) PT 14.5 INR 1.07 PTT (Actin FS) 28.9 D-Dimer, Quantitative Sodium Potassium Chloride Carbon Dioxide Anion Gap BUN Creatinine Estimated GFR/1.73 m2 BUN/Creatinine Ratio Glucose Calculated Osmolality Calcium Magnesium Total Bilirubin AST ALT Alkaline Phosphatase Creatine Kinase Troponin T Tgj-N-Wsijwqeiylt Pept Total Protein Albumin Globulin Albumin/Globulin Ratio Orders Category Date Time Status Admit - [facility] Routine AdmDCTranf 09/02/18 23:07 Active Activity - Strict Bedrest ORDERED Care 09/02/18 23:07 Active Neurological Check Q4H Care 09/02/18 23:09 Active Nursing- Obtain EKG ONCE Care 09/02/18 18:47 Active Resuscitation Status Routine Care 09/02/18 23:07 Ordered Vital Signs Order Q 4-HR ASSESS Care 09/02/18 23:07 Active Z-Document. for Tele Applied ORDERED Care 09/02/18 23:09 Active NPO Diet 09/02/18 23:10 Active CHEST-2 VIEWS [RAD] Stat Exams 09/02/18 18:[address] HEAD W/O CONTRAST [CT] Stat Exams 09/02/18 18:47 Completed CBC WITH DIFF [HEME] Stat Lab 09/02/18 18:56 Completed CK PROFILE [SP CHEM] Stat Lab 09/02/18 18:56 Completed COMPREHENSIVE METABOLIC PANEL [CHEM] Stat Lab 09/02/18 18:56 Completed D-DIMER [COAG] Stat Lab 09/02/18 18:56 Completed MAGNESIUM [CHEM] Stat Lab 09/02/18 18:56 Completed PRO B-NATRIURETIC PEPTIDE Stat Lab 09/02/18 18:56 Completed PROTIME WITH INR [COAG] Stat Lab 09/02/18 18:56 Completed PTT [COAG] Stat Lab 09/02/18 18:56 Completed TROPONIN T Stat Lab 09/02/18 18:56 Completed 0.9% Sodium Chloride Inj [Ns] 1,000 ml Med 09/02/18 23:07 Active IV 100 mls/hr Aspirin Med 09/02/18 23:03 Discontinued 81 mg PO NOW ONE Oxygen Device Routine Oth 09/02/18 23:09 Active Telemetry [OM.EQ] Routine Oth 09/02/18 23:07 Active EKG [EKG] Stat Ther 09/02/18 18:47 Draft Transfer/Admit Order [TRANSFER] Routine Transfer 09/02/18 23:10 Completed Result Diagrams: 09/02/18 18:56 09/02/18 18:56 - CONSULTS/PCP/HOSPITALIST Notification #1 *Consult/PCP/Hospitalist*: [place] Time Discussed: 22:00 Consult Disposition: Admit Departure - Departure Date of Disposition Decision: 09/02/18 Time of Disposition Decision: 22:00 DIAGNOSIS: CVA (cerebral vascular accident) Qualifiers: CVA mechanism: unspecified Qualified Code(s): I63.9 - Cerebral infarction, unspecified Disposition: HOME 01 Certified Medical Emergency: Emergent Condition: Stable - Critical Care Note This patient required my direct & personal management of CC.: No Attestation - Physician/ GINGER Attestation Patient care was provided by Advanced Practice Provider:: No The physician spent face to face time with patient:: Yes Advanced Practice Provider documentation review:: Supervising physician onsite and consulted in the evaluation and care of this patient. The physician did have a face to face encounter with the patient. - NIH Stroke Scale Level of Consciousness: 0-Alert LOC Questions (ask month and age): 0-Answers Both Correctly LOC Commands (ask to open & close eyes;make a fist, let go): 0-Obeys Both Correctly Best Gaze (horizontal eye movement): 0-Normal Visual (use finger movement, counting or visual threat): 0-No Visual Loss Facial Palsy (show teeth or raise eyebrows & close eyes tght: 2-Partial Paralysis Motor Function-left arm: 0-Normal Motor Function-right arm: 0-Normal Motor Function-left le-Normal Motor Function-right le-Normal Limb Ataxia(kjdxwn-jjvc-yqqokm, or heel to gao): 0-No Ataxia Sensory(pin prick to face,arms,trunk,legs-compare side/side): 0-No Ataxia Best Language(name item/read sentence.Ex-Down to Earth): 0-No Aphasia Dysarthria(Pt read words or say words Ex.Mama,Tip-Top,Thanks: 1-Mild-Mod Slurring Words Extinction and Inattention: 0-Normal NIH Total Score: 3
[2018-09-02 19:34] LABS: BASO# 0.05 X1000 (0.0-0.2); EOS# 0.11 X1000 (0.0-0.7); EOS% 2.1 % (0.0-10.0); HEMATOCRIT 36.7 % (37.0-47.0); HEMOGLOBIN 11.7 g/dL (12.0-16.0); LYMPH# 2.21 X1000 (1.2-3.4); LYMPH% 42.2 % (20.5-51.1); MCH 28.4 PG (27-31); MCHC 31.9 g/dL (33-37); MCV 89.1 FL (81-99); MONO# 0.52 X1000 (0.11-0.59); MONO% 9.9 % (1.7-9.3); MPV 11.5 FL (7.4-10.4); NEUT# 2.35 X1000 (1.4-6.5); NEUT% 44.8 % (42.2-75.2); PLT 169 X1000 (130-400); RBC 4.12 XMIL (4.2-5.4); RDW 14.2 % (11.5-14.5); WBC 5.24 X1000 (4.8-10.8)
--- NOTE | 2018-09-02 19:49 | Diag Imaging Result Doc PS360 ---
EXAM: CT HEAD W/O CONTRAST INDICATION: STROKE LIKE SYM TECHNIQUE: This exam was performed using automated exposure control, adjustment of mA or kV according to patient size, and/or use of iterative reconstruction technique. COMPARISON: 03/20/2017 FINDINGS: There is mild patchy low attenuation in the periventricular and subcortical white matter. This is largely stable. However, it does appear to be more prominent in the right frontal lobe as compared to the previous study. This is may simply be advancing white matter microangiopathy. However, late acute or subacute infarcts cannot completely be excluded by CT. Please correlate clinically. There is no other definite acute infarct given the limited sensitivity of CT versus MRI. There is no discrete intracranial mass, mass effect, or intracranial hemorrhage. The surrounding soft tissues and bony structures are essentially unremarkable. IMPRESSION: Patchy low attenuation in the right frontal lobe white matter that is slightly more prominent than in 2017. This may simply represent advancing white matter microangiopathy. However, a small late acute or subacute infarct cannot completely be excluded. Please correlate with neurological exam. Electronically signed by Maurisio Marsh 09/02/2018 7:47 PM
[2018-09-02 19:51] LABS: ALBUMIN 4.2 g/dL (3.5-5.0); CALCIUM 9.4 mg/dL (8.8-10.2); CREATININE 1.9 mg/dL (0.5-0.9); MAGNESIUM 2.3 mg/dL (1.5-2.7); POTASSIUM 4.3 mmol/L (3.5-5.1); TOTAL BILIRUBIN 0.3 mg/dL (0.20-1.00)
[2018-09-02 20:07] LABS: INR 1.07; PROTIME 14.5 Seconds (11.0-16.0)
[2018-09-02 20:08] LABS: PTT 28.9 Seconds (22.3-41.8)
--- NOTE | 2018-09-02 20:13 | EKG Report ---
Test Performed on : 09/02/2018 6:59:33 PM Test Reason : STROKE PROTOCOL Blood Pressure : / mmHG Vent. Rate : 068 BPM Atrial Rate : 062 BPM P-R Int : 000 ms QRS Dur : 086 ms QT Int : 428 ms P-R-T Axes : 000 -55 060 degrees QTc Int : 455 ms Atrial fibrillation. Left anterior fascicular block Abnormal ECG When compared with ECG of 19-MAR-2017 23:03, Atrial fibrillation. has replaced Junctional rhythm. Unconfirmed Result
--- NOTE | 2018-09-02 20:25 | Diag Imaging Result Doc PS360 ---
EXAM: CHEST-2 VIEWS INDICATION: STROKE PROTOCOL TECHNIQUE: 2 views COMPARISON: 07/23/2016 FINDINGS: There is stable mild elevation of the right hemidiaphragm. The lungs are grossly clear. There is no discrete pleural fluid collection or pneumothorax. The cardiac silhouette is mildly prominent but stable. Central vasculature is unremarkable. There is a mild compression deformity at T12 of unknown acuity. IMPRESSION: 1.Mild stable cardiomegaly. No definite acute chest pathology. 2.Mild compression deformity at T12 of unknown acuity. Electronically signed by Maurisio Marsh 09/02/2018 8:22 PM
--- NOTE | 2018-09-02 22:06 | ED EKG INTERP ---
This chart was entered by Sarah Mishra Scribe, acting as scribe for Danny Edmond MD. EKG Interpretation - EKG Time of EKG reading by physician:: 19:00 EKG Read and Signed by:: Danny Edmond EKG Interpretation (*Must complete 3 of following elements*): Abnormal (left anterior fasicular block) Rate: 68 Rhythm: afib ST Wave: normal Attestation - Physician/ GINGER Attestation Patient care was provided by Advanced Practice Provider:: No The physician spent face to face time with patient:: Yes Advanced Practice Provider documentation review:: Supervising physician onsite and consulted in the evaluation and care of this patient. The physician did have a face to face encounter with the patient. This chart was documented by the indicated scribe, (Sarah Mishra Scribe) and accurately reflects the services I performed and decisions made by me, Lonnie Edmond MD, as attested by the provider's signature.
[2018-09-02] MEDS ORDERED: ASPIRIN PO ONE (23:03)
[2018-09-02] MEDS ORDERED: NS 1,000 ML IV ONE (23:07)
[2018-09-03 10:20] VITALS: BP 162/84
--- NOTE | 2018-09-03 12:44 | Diag Imaging Result Doc PS360 ---
EXAM: MRI BRAIN W/WO CONTRAST 09/03/2018 HISTORY: stroke TECHNIQUE: Sagittal T1, axial T1 and post gadolinium-enhanced axial T1 with coronal reformation, coronal gradient echo, axial T2, FLAIR and DWI. COMMENT: There are no previous studies. There is no evidence of mass effect, bleed, or abnormal extra-axial fluid collection. The post gadolinium images are degraded by patient motion. There are multiple small foci of apparent restricted diffusion in the centrum semiovale region of the right parietal lobe. This corresponds to areas of increased T2-weighted signal intensity. IMPRESSION: Subacute or acute lacunar infarctions in the right parietal lobe as described. The findings were discussed with Tone Duggan MD at 09/03/2018 12:42 PM. Electronically signed by Lacho Casillas 09/03/2018 12:42 PM
--- NOTE | 2018-09-03 13:36 | Diag Imaging Result Doc PS360 ---
EXAM: MRA BRAIN W/O CONTRAST HISTORY: STROKE TECHNIQUE: MR angiography of the brain. MIP images obtained. COMPARISON: None. FINDINGS: There is normal flow in the distal right internal carotid artery. The distal left internal carotid artery is poorly seen. Normal filling of the anterior and middle cerebral arteries. The left middle cerebral artery may be giving the majority of its flow from the right. Normal flow in the basilar artery and posterior cerebral arteries. No aneurysm. 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 Electronically signed by Nabeel Banegas 09/03/2018 1:34 PM
--- NOTE | 2018-09-03 13:40 | ECHO REPORT ---
ORDER DATE: 09/03/2018 INDICATION: Stroke. FINDINGS: 1. The right atrium appears normal in size. 2. Mild tricuspid regurgitation. RV systolic pressure of 34. 3. Normal RV size and systolic function. 4. Mild pulmonic insufficiency. 5. Suggestion of severe left atrial enlargement with a volume index of 69. 6. No mitral valve prolapse. Mild bordering on moderate mitral regurgitation. No mitral stenosis. 7. Normal LV size. End-diastolic dimension of 4 cm. Normal wall thicknesses with posterior and interventricular septal wall thicknesses of 1 cm each. Normal LV systolic function. Calculated ejection fraction of 62% with normal wall motion. 8. Aortic valve opens well. It is trileaflet. Trace insufficiency. No stenosis. 9. Aorta appears normal in visualized segments. 10. No pericardial effusion seen. 11. There is no evidence of dqnhp-xn-dmdt shunting via injection of agitated saline contrast as well as there was no evidence of shunting across the interatrial septum via color Doppler evaluation. cc: MD Tone Ashby MD
--- NOTE | 2018-09-03 13:47 | Diag Imaging Result Doc PS360 ---
EXAM: MRA NECK W/CONT HISTORY: STROKE TECHNIQUE: MR angiography of the neck. MIP images obtained. COMPARISON: None. FINDINGS: There is quite a bit of patient motion. Taking the motion into consideration, there appears to be good flow within each common carotid artery without occlusion or stenosis. There also appears to be good flow within each proximal and mid internal carotid artery without stenosis or occlusion. There is flow within both vertebral arteries. IMPRESSION: No occlusion or stenosis identified. Electronically signed by Nabeel Banegas 09/03/2018 1:44 PM
[2018-09-03] MEDS ORDERED: LOPRESSOR PO SCH (14:00)
[2018-09-03] MEDS ORDERED: PROZAC PO SCH (14:00)
[2018-09-03] MEDS ORDERED: PLAVIX PO SCH (14:00)
[2018-09-03] MEDS ORDERED: BIOTIN PO SCH (14:00)
--- NOTE | 2018-09-03 15:21 | HISTORY AND PHYSICAL ---
PRIMARY CARE PHYSICIAN: Raleigh Banda MD CHIEF COMPLAINT: Right-sided facial droop and slurred speech that began yesterday morning prior to arriving yesterday afternoon around 6 p.m. HISTORY OF PRESENTING ILLNESS: This is a 78-year-old female, who presents to [facility] ER with a right-sided facial droop and slurred speech that began around 8 a.m. yesterday morning. She presented to the ER around 6 p.m. last night so she was out of the window to have a tPA. She had a previous stroke in 2017 and was given tPA in the emergency room, and her symptoms all resolved by the time she arrived to [facility], according to the patient. Currently, her only deficits that she has noted are the facial drooping and unable to raise her right eyebrow. Her initial workup in the emergency room showed a CT of the head with patchy low attenuation in the right frontal lobe white matter that is slightly more prominent than in 2017. This may simply represent advancing white matter microangiopathy; however, a small late acute or subacute infarct cannot completely be excluded. We did do an MRI of the brain that showed a subacute or acute lacunar infarction in the right parietal lobe and so she was admitted for further evaluation and treatment. PAST MEDICAL HISTORY: CVA, CAD, hypertension, [place], hypothyroidism, and atrial fibrillation. PAST SURGICAL HISTORY: Hysterectomy and cataract surgery. FAMILY HISTORY: Reviewed and noncontributory. SOCIAL HISTORY: She currently lives with family. Denies any tobacco, alcohol, or illicit drug use. ALLERGIES: She has no known drug allergies. HOME MEDICATIONS: She was taking Tylenol Extra Strength 500 mg p.o. q.a.m., Eliquis 2.5 mg p.o. b.i.d., biotin 1000 mcg p.o. daily, Plavix 75 mg p.o. daily, Prozac 10 mg p.o. daily, Lopressor 50 mg p.o. b.i.d., and rosuvastatin 20 mg p.o. daily. DIAGNOSTIC STUDIES: Laboratory data showed a white blood cell count of 5.24, hemoglobin 11.7, hematocrit 36.7, platelets 169,000. PT of 14.5 and INR 1.07, with a D-dimer of 0.48. Sodium 142, potassium 4.3, chloride 106, CO2 of 24, BUN of 34, creatinine is 1.9 but this is around her baseline as she has some chronic kidney disease with a baseline around 1.7, glucose 99, magnesium 2.3. Cardiac enzyme was negative. ProBNP of 5119. Chest x-ray showed mild stable cardiomegaly. No definite acute chest pathology. Mild compression deformity at T12 of unknown acuity. EKG: Atrial fibrillation at 68. CT of the head showed patchy low attenuation in the right frontal lobe white matter that is slightly more prominent than in 2017, may simply represent advancing white matter microangiopathy. However, a small late acute or subacute infarct could not be completely excluded. Brain MRI showed a subacute or acute lacunar infarct in the right parietal lobe as described. REVIEW OF SYSTEMS: She denied any fever, chills, blurred vision, dizziness, chest pain, coughing, shortness of breath. She does have some slurred speech and some right-sided facial drooping. Denies any abdominal pain, constipation, diarrhea, or burning or hurting with urination. PHYSICAL EXAMINATION: On arrival, she had a temperature of 98 degrees, pulse 68, respirations 18, blood pressure 182/89, saturating 98% on room air. GENERAL: This is a 78-year-old female, who is sitting on the side of the bed. Answers questions appropriately. Speech is noted to be slurred, and right-sided facial drooping noted. HEMNT: Otherwise normocephalic, atraumatic. Normal ENT inspection except for the right-sided facial drooping. Oropharynx and nares are clear. EYES: Pupils are equal, round, and reactive to light and accommodation. Extraocular movements are intact. NECK: Normal inspection. Normal range of motion. LUNGS: Clear to auscultation bilaterally with equal lung expansion and chest wall movement. HEART: With regular rate and rhythm. No murmurs, rubs, or gallops. ABDOMEN: Soft, nontender, nondistended. Bowel sounds are present x4 quadrants. MUSCULOSKELETAL: She has 5/5 strength x4 extremities. NEUROLOGICAL: The cranial nerves 2 through 12 are grossly intact with her only deficits being right-sided facial drooping and unable to raise her right eyebrow and some mild slurred speech. ASSESSMENT: 1. Acute cerebrovascular accident. 2. Hypertension. 3. Atrial fibrillation. 4. Hypothyroidism. OUR PLAN: She was admitted to the medical unit at [place], placed on telemetry, O2 per protocol, healthy heart diet. We are obtaining a brain MRA and neck MRA and also an echocardiogram. I am going to discuss this case with her neurologist, Dr. Ingram, for any further medication changes that may need to be provided and for follow-up and further orders after seen by attending. Dictated by PRESTON Smith for Tone Mcdowell MD Addendum: Patient seen and examined by myself. Agree with PRESTON note. It reflects my assessment and plan. Patient is being admitted to hospital for possible stroke. Workup under progress that include MRI/MRA of brain and MRA of neck. Echo has been ordered too. Will monitor this patient closely. cc: PRESTON Smith MD Theodros Mengesha Adnan A. Seljuki, MD [facility] SYSTEMVaishnavi
[2018-09-03] MEDS ORDERED: CRESTOR PO SCH (21:00)
[2018-09-03] MEDS ORDERED: ELIQUIS PO SCH (21:00)
--- NOTE | 2018-09-04 01:11 | DISCHARGE SUMMARY ---
ADMISSION DATE: 09/02/2018 DISCHARGE DATE: 09/03/2018 PRIMARY CARE PHYSICIAN: Dr. Banda. NEUROLOGIST: Dr. Ingram. ADMISSION DIAGNOSES: 1. Acute cerebrovascular accident. 2. Hypertension. 3. Hypothyroidism. 4. Atrial fibrillation. DISCHARGE DIAGNOSES: 1. Acute cerebrovascular accident. 2. Hypertension. 3. Hypothyroidism. 4. Atrial fibrillation. SUMMARY OF FINDINGS: This is a 78-year-old female who presented to the emergency room after she was noted yesterday morning at 8 a.m. to have some right-sided facial drooping and slurred speech. She arrived to the emergency room around 6 p.m. last night. Her workup showed a head CT with a possible small late acute or subacute infarct that could not be excluded so she was admitted. We did do a brain MRI that showed a subacute or acute lacunar infarct in the right parietal lobe. We did a neck MRA that showed no occlusion or stenosis. 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 Echocardiogram showed ejection fraction of 62% with normal LV systolic function. No evidence of [id number] shunting via injection of agitated saline contrast as well as there was no evidence of shunting across the interatrial septum via color Doppler evaluation. She was admitted. We did her neuro examination. She ambulated without any difficulty. No upper or lower extremity weakness noted. Her only deficit in her neurological exam showed right-sided facial drooping, some mild slurred speech and unable to raise her right eyebrow. Otherwise, normal neurological examination. We discussed this case with Dr. Ingram, who recommended that we increase her Eliquis to 5 mg p.o. b.i.d. The patient has been having some difficulty with cost and has been supplemented with samples and is hoping to continue that until she can add a new insurance in December during open enrollment of her Medicare, but explained that the patient needed to increase her dose to 5 mg p.o. b.i.d., to stop her Plavix and add a baby aspirin of 81 mg daily, and that she would need outpatient speech therapy and to follow up with Dr. Ingram and patient verbalized understanding. DISCHARGE MEDICATIONS: Will be a prescription for Eliquis 5 mg p.o. b.i.d., aspirin 81 mg p.o. daily, biotin 1000 mcg p.o. daily, fluoxetine 10 mg p.o. daily, metoprolol 50 mg p.o. b.i.d., rosuvastatin 20 mg p.o. daily, and Tylenol Extra Strength p.o. q.a.m. She is to discontinue and stop taking her Plavix and then again she will follow up with Dr. Ingram and we will set her up for outpatient speech therapy. This is a 35 minute discharge. Dictated by PRESTON Smith for Tone Mcdowell MD Addendum: Patient seen and examined by myself. Agree with PRESTON note. It reflects my assessment and plan. Patient is being discharged in stable condition to home and will be seen by neurologist Dr. Ingram in a week. cc: PRESTON Smith MD Adnan A. Seljuki, MD Theodros Mengesha [facility]ITALVaishnavi
== END 2018-09-03 15:25 | disposition home or self-care (01) ==
LOC: P.ED 18:42 → P.EDIPHOLD 18:42 → P.MEDSURG 09-03 10:10
PROVIDERS: ATTEND Internal Medicine
CPT/HCPCS: 70450; 70544; 70548; 70553; 71020; 71046; 80053; 82550; 83735; 83880; 84484; 85025; 85379; 85610; 85730; 93005; 93306; A9270; A9579